=== PATIENT | female | born 1990 | race Caucasian/White ===

== ENCOUNTER 2017-11-15 09:44 | Emergency (ER) | payer OTHER ==
[2017-11-15 09:52] VITALS: BMI 20.9
[2017-11-15 09:53] VITALS: O2SAT 100
[2017-11-15] MEDS ORDERED: Famotidine 20mg/50ml 20 MG/50 ML BAG IVPB ONE (10:45)
--- NOTE | 2017-11-15 10:51 | ED PDOC ---
HPI: Abdomen Time Seen by Provider: 11/15/17 10:02 Chief Complaint (Nursing): Chest Pain Chief Complaint (Provider): Abdominal Pain History Per: Patient History/Exam Limitations: no limitations Onset/Duration Of Symptoms: Days (x 2) Current Symptoms Are (Timing): Still Present Location Of Pain/Discomfort: Epigastric Quality Of Discomfort: "Pain" Additional Complaint(s): 21 year old female presents to the ED with epigastric abdominal pain for the last day. Patient report she went out drinking 2 days ago and vomited upon arrival home. The next morning, she began to experience sharp, intermittent epigastric pain. She took Pepto Bismol with minimal relief. The pain has persisted, prompting her visit to the ED. Denies fever, nausea, vomiting, diarrhea, constipation. PMD: none provided Past Medical History Reviewed: Historical Data, Nursing Documentation, Vital Signs Vital Signs: Last Vital Signs Temp 98.5 F 11/15/17 09:51 Pulse 87 11/15/17 09:51 Resp 17 11/15/17 09:51 BP 134/88 11/15/17 09:51 Pulse Ox 100 11/15/17 12:55 - Medical History PMH: No Chronic Diseases - Surgical History Surgical History: No Surg Hx - Family History Family History: States: Unknown Family Hx - Home Medications Home Medications: Ambulatory Orders Medication Instructions Recorded Dicyclomine [Bentyl] 20 mg PO QID PRN #10 tab 11/15/17 Famotidine [Pepcid] 20 mg PO BID #20 tab 11/15/17 - Allergies Allergies/Adverse Reactions: Allergies Allergy/AdvReac Type Severity Reaction Status Date / Time amoxicillin [From Augmentin] Allergy RASH Verified 11/15/17 11:26 clavulanic acid Allergy RASH Verified 11/15/17 11:26 [From Augmentin] - Laboratory Results Result Diagrams: 11/15/17 11:20 11/15/17 11:20 - ECG O2 Sat by Pulse Oximetry: 100 Medical Decision Making Medical Decision Making: Time: 10:33 Impression: gastritis, cholecystitis, cholelithiasis Initial Plan: --EKG --CMP --Lipase --Urine preg --Urine dip --CBC with differentials --Bentyl 20 mg PO --Pepcid 20 mg in 50 ml IVPB --Urinalysis --Abdomen US Time: 12:03 Abdomen US FINDINGS: LIVER: Measures 13.7 cm in length. Patent portal vein. Portal venous flow: Hepatopetal. Unremarkable echogenicity of the liver parenchyma. No mass. No intrahepatic bile duct dilatation. GALLBLADDER: Unremarkable. No gallstones. COMMON BILE DUCT: Measures mm. No stones. No dilatation. PANCREAS: Unremarkable as visualized. No mass. No ductal dilatation. RIGHT KIDNEY: Measures cm in length. Normal echogenicity. No calculus, mass, or hydronephrosis. AORTA: No aneurysmal dilatation. IVC: Unremarkable. OTHER FINDINGS: None . IMPRESSION: Unremarkable study Scribe Attestation: Documented by Radha Bennett, acting as a scribe for Jeannie Eric MD Provider Scribe Attestation: All medical record entries made by the Scribe were at my direction and personally dictated by me. I have reviewed the chart and agree that the record accurately reflects my personal performance of the history, physical exam, medical decision making, and the department course for this patient. I have also personally directed, reviewed, and agree with the discharge instructions and disposition. Disposition - Clinical Impression Clinical Impression: Gastritis - Disposition Condition: STABLE Additional Instructions: FOLLOW-UP WITH PMD WITHIN 2 DAYS FOR REEVALUATION. Prescriptions: Dicyclomine [Bentyl] 20 mg PO QID PRN #10 tab PRN Reason: Pain, Moderate (4-7) Famotidine [Pepcid] 20 mg PO BID #20 tab Instructions: Gastritis Forms: [facility] ([place]ian) PAOLO Risk Score for UA/NSTEMI - PAOLO Risk Score Age > 64: NO 3 or more CAD Risk Factors: NO Known CAD (Stenosis greater than 50%): NO Aspirin use in past 7 days: NO Severe Angina: NO EKG ST changes greater than 0.5mm: NO Positive Cardiac Marker: NO PAOLO Score: 0 Risk %: 5% Wells Criteria for PE - Wells Criteria for Pulmonary Embolism Clinical Signs and Symptoms of DVT: No P.E is #1 Diagnosis, or Equally Likely: No Heart Rate >100: No Immobilization at least 3 days;Surgery previous 4 weeks: No Previous, objectively diagnosed PE or DVT: No Hemoptysis: No Malignancy w/treatment within 6 months, or palliative: No Total Score: 0
[2017-11-15 11:32] LABS: BASO # 0.1 K/uL (0.0-0.2); BASO % 0.6 % (0.0-2.0); EOS % 0.5 % (0.0-4.0); HEMOGLOBIN 14.2 g/dL (12.0-16.0); LYMPH # 1.3 K/uL (1.0-4.3); LYMPH % 13.2 % (20.0-40.0); MEAN CELL VOLUME 98.7 fl (81.0-99.0); MEAN CORPUSCULAR HEMOGLOBIN 33.6 pg (27.0-31.0); MEAN CORPUSCULAR HGB CONC 34.1 g/dL (33.0-37.0); MEAN PLATELET VOLUME 10.5 fl (7.2-11.7); MONO # 0.8 K/uL (0.0-0.8); MONO % 8.3 % (0.0-10.0); NEUT # 7.4 K/uL (1.8-7.0); NEUT % 77.4 % (50.0-75.0); RBC 4.22 Mil/uL (3.80-5.20); RED CELL DISTRIBUTION WIDTH 13.1 % (11.5-14.5); WHITE BLOOD COUNT 9.6 K/uL (4.8-10.8)
[2017-11-15 11:35] LABS: SQUAMOUS EPITHIAL 20 /hpf (0-5); URINE BACTERIA RARE (<OCC); URINE BILIRUBIN NEGATIVE (NEGATIVE); URINE BLOOD NEGATIVE (NEGATIVE); URINE CLARITY CLOUDY (Clear); URINE COLOR YELLOW (YELLOW); URINE GLUCOSE (UA) NEG (Normal); URINE LEUKOCYTE ESTERASE NEG Leu/uL (Negative); URINE PROTEIN 30 mg/dL (NEGATIVE); URINE UROBILINOGEN 0.2-1.0 mg/dL (0.2-1.0)
[2017-11-15 11:46] LABS: ALB/GLOB RATIO 1.2 (1.0-2.1); ALBUMIN 3.9 g/dL (3.5-5.0); ALT/SGPT 28 U/L (9-52); AST/SGOT 25 U/L (14-36); BLOOD UREA NITROGEN 13 mg/dl (7-17); CALCIUM 9.3 mg/dL (8.4-10.2); GFR AFRICAN-AMERICAN > 60; GFR NON-AFRICAN AMERICAN > 60; LIPASE 63 U/L (23-300)
--- NOTE | 2017-11-15 12:05 | US ---
HISTORY: Epigastric pain COMPARISON: None. TECHNIQUE: Sonographic evaluation of the right upper quadrant of the abdomen. FINDINGS: LIVER: Measures 13.7 cm in length. Patent portal vein. Portal venous flow: Hepatopetal. Unremarkable echogenicity of the liver parenchyma. No mass. No intrahepatic bile duct dilatation. GALLBLADDER: Unremarkable. No gallstones. COMMON BILE DUCT: Measures mm. No stones. No dilatation. PANCREAS: Unremarkable as visualized. No mass. No ductal dilatation. RIGHT KIDNEY: Measures cm in length. Normal echogenicity. No calculus, mass, or hydronephrosis. AORTA: No aneurysmal dilatation. IVC: Unremarkable. OTHER FINDINGS: None . IMPRESSION: Unremarkable study
[2017-11-15 13:17] VITALS: BP 116/72; PULSE 75; RESP 16; TEMP 97.8
--- NOTE | 2017-11-15 15:21 | CARD ---
APPROVED REPORT EKG Measurement Heart [id number] <Conclusion> Normal sinus rhythm Possible Left atrial enlargement Borderline ECG
== END 2017-11-15 13:17 | disposition home or self-care (01) ==
LOC: H.ER 09:44
DX: K29.70 Gastritis, unspecified, without bleeding (principal); Z88.0 Allergy status to penicillin